=== PATIENT | female | born 1980 | race Caucasian/White ===

== ENCOUNTER 2021-06-07 10:33 | Emergency (ER) | payer BC ==
[~2021-06-07 10:33] MED LIST: COLACE 100MG C100 MG PO
[2021-06-07 13:08] LABS: HEMOGLOBIN 14.5 gm/dl (12.3-15.3); RED BLOOD COUNT 4.64 M/UL (4.00-5.10); WHITE BLOOD COUNT 7.5 K/UL (4.5-11.0)
[2021-06-07 13:27] LABS: BUN/CREATININE RATIO 13 (0-10)
== END 2021-06-07 15:35 | disposition home or self-care (01) ==
LOC: ER1 10:33
PROVIDERS: Physician Assistant
DX: N83.202 Unspecified ovarian cyst, left side (principal); K21.9 Gastro-esophageal reflux disease without esophagitis; I10 Essential (primary) hypertension; Z90.49 Acquired absence of other specified parts of digestive tract
CPT/HCPCS: 80053; 81001; 84703; 85025; 99284

== ENCOUNTER → 2022-01-23 | Outpatient (CLI) | payer BC | LOC: MAMO 10-22 08:30 | DX: Z12.31 Encounter for screening mammogram for malignant neoplasm of breast (principal) | CPT/HCPCS: 77063; 77067 ==

== ENCOUNTER → 2022-03-30 | Outpatient (CLI) | payer BC ==
[2022-03-30 08:19] LABS: HEMOGLOBIN 13.8 gm/dl (12.3-15.3); RED BLOOD COUNT 4.49 M/UL (4.00-5.10)
[2022-03-30 08:44] LABS: BUN/CREATININE RATIO 14 (0-10)
== END ==
LOC: LAB 08:01
PROVIDERS: Nurse Practitioner Family
DX: Z13.21 Encounter for screening for nutritional disorder (principal); Z13.29 Encounter for screening for other suspected endocrine disorder; I10 Essential (primary) hypertension
CPT/HCPCS: 36415; 80053; 80061; 82607; 84439; 84443; 85025